=== PATIENT | female | born 1975 | race Caucasian/White ===

== ENCOUNTER 2017-12-22 07:46 | Emergency (ER) | payer BC ==
--- NOTE | 2017-12-22 09:13 | UC ---
Sav Linder Julia, scribed for Madiha Puga MD on 12/22/17 at 0906 . Eye Complaint HPI - HPI Summary HPI Summary: This patient is a 42 year old F [place] [facility] [place] with a chief complaint red patches in left upper sclera noticed this morning while putting in contacts. Patient denies eye pain, vision changes, and drainage. No discomfort. No foreign body noted. No recent trauma. No vision changes. no photophobia. Pt had new contacts a couple days ago without changes to brand or solution. Denies history of stys. Reports previous conjunctivitis. 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 Pt is followed by Dr. Nunez for eye care. - History of Current Complaint Chief Complaint: UCEye Stated Complaint: EYE ISSUE Time Seen by Provider: 12/22/17 08:40 Hx Obtained From: Patient Hx Last Menstrual Period: 12/21/14 Onset/Duration: Sudden Onset, Lasting Hours Timing: Constant Pain Intensity: 0 Pain Scale Used: 0-10 Numeric Location of Injury: Sclera - left upper Aggravating Factor(s): Nothing Alleviating Factor(s): Nothing Associated Signs And Symptoms: Positive: Negative Related History: Other - Drusen - Allergies/Home Medications Allergies/Adverse Reactions: Allergies Allergy/AdvReac Type Severity Reaction Status Date / Time No Known Allergies Allergy Verified 12/22/17 08:04 Home Medications: Home Medications Sertraline* [Zoloft*] 1 tab PO DAILY 12/22/17 [History Confirmed 12/22/17] PMH/Surg Hx/FS Hx/Imm Hx Previously Healthy: Yes - Drusen - Surgical History Surgical History: Yes Surgery Procedure, Year, and Place: C-SECTIONS X3,. GALLBLADDER. - Family History Known Family History: Positive: Hypertension - Social History Occupation: Employed Full-time Alcohol Use: Occasionally Substance Use Type: None Smoking Status (MU): Never Smoked Tobacco - Immunization History Most Recent Influenza Vaccination: 2014/2016 season Most Recent Tetanus Shot: unk Most Recent Pneumonia Vaccination: none Review of Systems Constitutional: Negative Eyes: Negative - vision changes, pain, drainage, Eye Redness - left upper All Other Systems Reviewed And Are Negative: Yes Physical Exam Triage Information Reviewed: Yes Appearance: Well-Appearing, No Pain Distress, Well-Nourished Vital Signs: Initial Vital Signs Temp 97.9 F 12/22/17 07:58 Pulse 75 12/22/17 07:58 Resp 20 12/22/17 07:58 BP 172/89 12/22/17 07:58 Pulse Ox 99 12/22/17 07:58 Eyes: Positive: Other: - THEO, EOM intact and full No injection No photophobia + crisp fundiscopic margin pt with subconjunctival hemorrage upper, outer sclera No foreign body noted underlid with eversion ENT Exam: Normal ENT: Positive: Normal ENT inspection, Hearing grossly normal, Pharynx normal Dental Exam: Normal Neck exam: Normal Neck: Positive: Supple, Nontender, No Lymphadenopathy Respiratory Exam: Normal Respiratory: Positive: Chest non-tender, Lungs clear, Normal breath sounds, No respiratory distress, No accessory muscle use Cardiovascular Exam: Normal Cardiovascular: Positive: RRR, No Murmur Abdominal Exam: Normal Abdomen Description: Positive: Nontender, No Organomegaly, Soft Bowel Sounds: Positive: Present Musculoskeletal Exam: Normal Musculoskeletal: Positive: Strength Intact Neurological Exam: Normal Neurological: Positive: Alert Psychological Exam: Normal Psychological: Positive: Normal Response To Family Skin Exam: Normal Eye Complaint Course/Dx - Course Course Of Treatment: pt with subonjunctival hemorrhage left eye. Pt without symptoms. reassured pt. recommend f/u with ophtho (pt goes to Dr. Nunez). return precautions discussed. Pt comfort and in agreement with plan. Pt with elevated BP - recommend f/u with pcp - Differential Dx/Diagnosis Provider Diagnoses: subconjunctival hemorrage Discharge - Sign-Out/Discharge Documenting (check all that apply): Discharge/Admit/Transfer - Discharge Plan Condition: Stable Disposition: HOME Patient Education Materials: Subconjunctival Hemorrhage (ED) Referrals: Donta Nunez MD [Medical Doctor] - Shreya Milton MD [Primary Care Provider] - Additional Instructions: - okay to take tylenol every 6 hours as needed for discomfort - if you develop any vision changes, drainage, light sensitivity, headache or other concerns it is recommended you contact Dr. Nunez to schedule an evaluation - If you develop irritation if your eye, it is recommended you remove your contact lens until you are evaluated by your administrative program specialist - Billing Disposition and Condition Condition: STABLE Disposition: HOME The documentation as recorded by the Sav crane Julia accurately reflects the service I personally performed and the decisions made by me, Madiha Puga MD.
[2017-12-22 09:23] VITALS: BP 148/80
== END 2017-12-22 09:22 | disposition home or self-care (01) ==
LOC: UCEAST 07:46
DX: H11.32 Conjunctival hemorrhage, left eye (principal); R03.0 Elevated blood-pressure reading, without diagnosis of hypertension
CPT/HCPCS: 99212; G0463